=== PATIENT | female | born 1990 | race African-American/Black ===

== ENCOUNTER 2024-02-28 00:16 | Emergency (ER) | payer OTHER ==
[~2024-02-28] VITALS: Ht 182.9 cm; Wt 101.3 kg
[2024-02-28 00:44] VITALS: O2SAT 100
[2024-02-28 00:49] VITALS: BP 120/77; PULSE 79; RESP 20; TEMP 98.5; O2SAT 100
[2024-02-28] MEDS ORDERED: DIPHENHYDRAMINE 50MG CAPSULE PO ONE (01:00)
[2024-02-28] MEDS: METOCLOPRAMIDE HCL 10MG TABLET PO ONE (02:04)
[2024-02-28] MEDS: DIPHENHYDRAMINE 25MG CAPSULE PO NR (02:05)
[2024-02-28] MEDS: IBUPROFEN 600MG TABLET PO ONE (02:05)
[2024-02-28] MEDS ORDERED: METH4TAB95 MT (04:27)
== END 2024-02-28 04:52 | disposition home or self-care (01) ==
LOC: ER 00:16
DX: R51.9 Headache, unspecified (principal); H53.8 Other visual disturbances; R11.2 Nausea with vomiting, unspecified
CPT/HCPCS: 99284; Q0163; J8597